=== PATIENT | male | born 1965 | race Caucasian/White ===

== ENCOUNTER → 2019-11-11 | Outpatient (CLI) | payer OTHER ==
[~2019-11-11] MED LIST: FLOMAX0.4 MG PO; GLUCOSAMINE HC500 MG PO; IBUPROFEN 600600 M1 PO; NORCO 5-325 TA1 EACH PO; ZOFRAN ODT4 MG PO
== END ==
LOC: CAT 07:59
DX: Z13.6 Encounter for screening for cardiovascular disorders (principal); I25.10 Atherosclerotic heart disease of native coronary artery without angina pectoris; E78.00 Pure hypercholesterolemia, unspecified

== ENCOUNTER → 2020-08-24 | Outpatient (CLI) | payer OTHER | LOC: CAT 08:36 | PROVIDERS: ATTEND Family Medicine | DX: Z13.6 Encounter for screening for cardiovascular disorders (principal); I25.10 Atherosclerotic heart disease of native coronary artery without angina pectoris; E78.00 Pure hypercholesterolemia, unspecified ==

== ENCOUNTER → 2021-07-03 | Outpatient (CLI) | payer OTHER | LOC: SJCVCIMAG 06:36 | PROVIDERS: ATTEND Family Medicine | DX: R93.1 Abnormal findings on diagnostic imaging of heart and coronary circulation (principal); E78.5 Hyperlipidemia, unspecified ==